=== PATIENT | female | born 1985 | race Caucasian/White ===

== ENCOUNTER → 2019-08-16 | Outpatient (CLI) | payer OTHER ==
--- NOTE | 2019-08-16 13:52 | KCIC ---
PROCEDURE: FOOT RIGHT 3V STUDY DATE: 08/16/2019 CLINICAL INDICATION / HISTORY: Right foot pain since last night with limp. Possible twisting injury.. TECHNIQUE: AP, lateral and oblique views of the right foot. COMPARISON: None FINDINGS: No fracture or dislocation is identified. The bone density is normal. Mild bunion deformity of the first MTP joint is noted along with early degenerative changes at the first tarsometatarsal joint. The joint space widths are maintained, and there are no erosions to suggest an inflammatory arthropathy. No soft tissue abnormality is seen. IMPRESSION: Mild early degenerative changes along the first ray of the right foot. No fracture, traumatic malalignment or otherwise acute findings in the right foot on x-ray. Electronically signed by: Anjelica Martin MD (08/16/2019 1:49 PM) [id number]
== END | disposition home or self-care (01) ==
LOC: KCIC 12:03
PROVIDERS: ATTEND Nurse Practitioner Family
DX: M19.071 Primary osteoarthritis, right ankle and foot (principal)
CPT/HCPCS: 73630